=== PATIENT | male | born 1985 | race Caucasian/White ===

== ENCOUNTER 2017-10-15 10:56 | Emergency (ER) | payer SELFPAY ==
[~2017-10-15] VITALS: Ht 185.4 cm; Wt 91.0 kg
[2017-10-15 11:23] LABS: HEMOGLOBIN 13.6 g/dL (13.7-18.0); WHITE BLOOD COUNT 5.3 x10^3/uL (3.4-10)
[2017-10-15 11:31] LABS: BLOOD UREA NITROGEN 10 mg/dL (7-18)
[2017-10-15 11:35] LABS: ASPARTATE AMINO TRANSFERASE 20 U/L (15-37)
[2017-10-15] MEDS ORDERED: IBUPROFEN 200 MG TABLET ONE (14:03)
[2017-10-15 14:26] VITALS: BP 125/72
[2017-10-15] MEDS ORDERED: IBUPROFEN 200 MG TABLET PO ONE (14:30)
== END 2017-10-15 14:30 | disposition home or self-care (01) ==
LOC: ED 14:15
DX: M54.12 Radiculopathy, cervical region (principal); F41.1 Generalized anxiety disorder; R06.4 Hyperventilation; R20.2 Paresthesia of skin; F32.9 Major depressive disorder, single episode, unspecified; F17.210 Nicotine dependence, cigarettes, uncomplicated
CPT/HCPCS: 36415; 72050; 80053; 85025; 99285